=== PATIENT | male | born 1940 | race Caucasian/White ===

== ENCOUNTER 2017-03-19 06:20 | Outpatient (CLI) | payer MEDICARE, OTHER ==
[~2017-03-19] VITALS: Ht 175.3 cm; Wt 99.8 kg
[~2017-03-19 06:20] MED LIST: AMOX1TAB61 PO; ASCO10002 PO; ASPI-630 PO; CARV6.252 PO; FINA5TAB4 PO; FURO20TA3 PO; LISI10TA2 PO; OMEG1CAP6 PO; PHEN100C PO; TAMS0.4C97 PO
[2017-03-19] MEDS ORDERED: EZET10TA18 PO (06:57)
[2017-03-19] MEDS ORDERED: CHOL100013 PO (06:57)
[2017-03-19] MEDS ORDERED: BACITRACIN 50,000 UNIT in IV NORMAL SALINE 250ML 250 ML IRR ONE (07:00)
[2017-03-19 07:10] LABS: HEMATOCRIT 43.2 % (39.0-53.0); HEMOGLOBIN 14.3 g/dL (13.0-17.5); RED BLOOD COUNT 4.67 x10^6/uL (4.30-5.70); RED CELL DISTRIBUTION WIDTH 15.4 % (11.5-14.5); WHITE BLOOD COUNT 16.8 x10^3/uL (4.0-11.0)
[2017-03-19 07:12] LABS: CREATININE 1.1 mg/dL (0.7-1.3); GFR 64.9; POTASSIUM 4.1 mmol/L (3.5-5.1)
[2017-03-19 07:13] VITALS: BP 126/72
[2017-03-19] MEDS ORDERED: LIDOCAINE 2%/EPI 1:100,000 20 ML VIAL. ONE (07:21)
[2017-03-19 07:23] LABS: INR 1.1 (0.8-1.1); PROTHROMBIN TIME PATIENT 13.9 SEC (11.7-14.0)
[2017-03-19] MEDS ORDERED: fentaNYL PF VIAL 250 MCG/5 ML VIAL ONE (07:57)
[2017-03-19] MEDS ORDERED: MIDAZOLAM HCL/PF 5 MG/5 ML VIAL. ONE (07:57)
--- NOTE | 2017-03-19 08:32 | PDOC ---
MODERATE SEDATION ASSESSMENT RISKS/ALTERNATIVES Risks/Alternatives Risks and alternatives of this type of sedation and procedure discussed with: RISK/ALTERNATIVES: Patient H & P ON CHART H & P H & P on chart and reviewed for co-morbid conditions and appropriate labs. H&P ON CHART: Yes STATUS PREG STATUS ASSESSED: N/A MEDS/ALLERGIES REVIEWED Meds/Allergies Reviewed Medications and Allergies including time and route of recently administered narcotics and sedatives. MEDS/ALLERGIES REVIEWED: Yes ASA RATING ASA RATING: II AIRWAY ASSESSMENT Airway Assessment Airway patency, oral function limitations, presence of caps, crowns, dentures, partials, and ability to extend neck assessed. AIRWAY ASSESSMENT: Yes MALLAMPATI SCORE MALLAMPATI SCORE: II PRE-SEDATION ASSESSMENT PRE-SEDATION ASSESSMENT: Yes MICHAEL PENA MD Mar 19, 2017 08:32
[2017-03-19] MEDS ORDERED: fentaNYL PF VIAL 250 MCG/5 ML VIAL IV ONE (09:30)
[2017-03-19] MEDS ORDERED: MIDAZOLAM HCL/PF 5 MG/5 ML VIAL. IV ONE (09:30)
[2017-03-19] MEDS ORDERED: LIDOCAINE 2%/EPI 1:100,000 20 ML VIAL. IJ ONE (09:30)
[2017-03-19 09:33] VITALS: BP 125/68
[2017-03-19 09:50] VITALS: BP 115/67
[2017-03-19 10:05] VITALS: BP 102/60
[2017-03-19 10:15] VITALS: BP 101/60
--- NOTE | 2017-03-19 10:26 | CARD ---
APPROVED REPORT PROCEDURES Successful Biotronik biventricular ICD/TARGETEER-D generator change 92 minutes of moderate sedation INDICATIONS Non-ischemic cardiomyopathy s/p biventricular ICD/TARGETEER-D implantation presenting with battery depletio n PROCEDURE After explaining the risks, benefits, and alternative options, informed consent was obtained from the patient. The patient was brought to the cardiac catheterization lab and the left chest and shoulder were prepp ed and draped in a sterile manner. 30 mL of 2% lidocaine was infiltrated into the skin and subcutaneous tissues for local anesthesia. An incision was made over the previous scar and using blunt dissection and cautery, the pocket was open ed, the capsule exposed and opened and the previously placed generator removed from the pocket. The l doug were detached and reattached to a Biotronik biventricular ICD/TARGETEER-D generator model Iperia 7 HF- T, serial #[id number]. This was placed in the pocket that was subsequently closed in 3 layers. Hemostas is was secured. There were no immediate complications. CONCLUSION Successful Biotronik biventricular ICD/TARGETEER-D generator change for battery depletion.
[2017-03-19 10:30] VITALS: BP 107/65
== END 2017-03-19 11:14 | disposition home or self-care (01) ==
LOC: CCL 06:20
PROVIDERS: ATTEND Internal Medicine Cardiovascular Disease
DX: I42.8 Other cardiomyopathies (principal); T82.191A Other mechanical complication of cardiac pulse generator (battery), initial encounter; Y84.8 Other medical procedures as the cause of abnormal reaction of the patient, or of later complication, without mention of misadventure at the time of the procedure; E78.00 Pure hypercholesterolemia, unspecified; I10 Essential (primary) hypertension; Z86.69 Personal history of other diseases of the nervous system and sense organs; Z86.39 Personal history of other endocrine, nutritional and metabolic disease
CPT/HCPCS: 33264; 36415; 80048; 85027; 85610; 99152; 99153; C1882; J0690; J2250; J3010; J3490; J7050; C1785; J7030

== ENCOUNTER → 2017-05-09 | Outpatient (CLI) | payer MEDICARE, OTHER ==
[~2017-05-09] MED LIST changes: +CHOL100013 PO; +EZET10TA18 PO
--- NOTE | 2017-05-09 14:54 | CARD ---
APPROVED REPORT EXAM: Two-dimensional and M-mode echocardiogram with Doppler and color Doppler. Other Information Quality : Average Rhythm : Pacemaker INDICATION Cardiomyopathy NICM 2D DIMENSIONS RVDd4.0 (2.9-3.5cm)Left Atrium(2D)3.7 (1.6-4.0cm) IVSd0.9 (0.7-1.1cm)Aortic Root(2D)3.2 (2.0-3.7cm) LVDd5.2 (3.9-5.9cm)LVOT Diameter2.2 (1.8-2.4cm) PWd0.9 (0.7-1.1cm)LVDs2.9 (2.5-4.0cm) FS (%) 33.7 %SV96.7 ml LVEF(%)64.5 (>50%) Aortic Valve AoV Peak Prem.147.6cm/sAoV VTI26.2cm AO Peak GR.8.7mmHgLVOT Peak Prem.87.6cm/s LVOT VTI 18.38cmAO Mean GR.5mmHg KINJAL (VMAX)2.14ht7YIL (VTI)2.78cm2 Mitral Valve MV E Jnjtkpyk97.4cm/sMV DECEL ZQFY615nn MV A Ilwcakfh38.2cm/sMV RFO54wm E/A Ratio1.3MV A Feccteqc17er MVA (PHT)2.51cm2 TDI E/Lateral E'9.2E/Medial E'8.3 Tricuspid Valve TR P. Vsjvhsdp452sz/sRAP ZLSUIZXD7zpCr TR Peak Gr.19vvDbJYUX87qcLt LEFT VENTRICLE The left ventricle is normal size. There is normal left ventricular wall thickness. Left ventricle sy stolic function is normal. The Ejection Fraction is 55-60%. The left ventricular diastolic function a nd filling is normal for age. There is no ventricular septal defect visualized. RIGHT VENTRICLE The right ventricle is mildly dilated. The right ventricular systolic function is normal. There is a pacemaker lead seen in the right ventricle and atrium. ATRIA The left atrium size is normal. The right atrium size is normal. The interatrial septum is intact wit h no evidence for an atrial septal defect or patent foramen ovale as noted on 2-D or Doppler imaging. AORTIC VALVE The aortic valve is normal in structure and function. The aortic valve is trileaflet. Doppler and Col or Flow revealed trace aortic regurgitation. There is no significant aortic valvular stenosis. MITRAL VALVE The mitral valve is normal in structure and function. There is no mitral valve stenosis. Doppler and Color Flow revealed no mitral valve regurgitation noted. TRICUSPID VALVE The tricuspid valve is not well visualized. Doppler and Color Flow revealed mild tricuspid regurgitat ion. The PA pressure was estimated at 35 mmHg. There is no tricuspid valve stenosis. PULMONIC VALVE The pulmonic valve is not well visualized. Doppler and Color Flow revealed no pulmonic valvular regur gitation. There is no pulmonic valvular stenosis. GREAT VESSELS The aortic root is normal in size. The ascending aorta is normal in size. Normal pulmonary venous shahriar w (Doppler). The IVC is normal in size and collapses >50% with inspiration. PERICARDIAL EFFUSION There is no evidence of significant pericardial effusion. Critical Notification Critical Value: No <Conclusion> The left ventricle is normal size. Left ventricle systolic function is normal. The Ejection Fraction is 55-60%. There is a pacemaker lead seen in the right ventricle and atrium. There is no significant aortic valvular stenosis. Doppler and Color Flow revealed trace aortic regurgitation. Doppler and Color Flow revealed no mitral valve regurgitation noted. Doppler and Color Flow revealed mild tricuspid regurgitation. The PA pressure was estimated at 35 mmHg.
== END | disposition home or self-care (01) ==
LOC: ECHO 12:56
PROVIDERS: ATTEND Internal Medicine Cardiovascular Disease
DX: I31.3 Pericardial effusion (noninflammatory) (principal); I42.9 Cardiomyopathy, unspecified
CPT/HCPCS: 93306

== ENCOUNTER → 2018-05-12 | Outpatient (CLI) | payer MEDICARE, OTHER ==
--- NOTE | 2018-05-12 11:02 | CARD ---
MR#: [id number] Date of Study: 05/12/2018 Ordering Physician: MICHAEL PENA, Referring Physician: MICHAEL PENA Tech: Salma Sherman RDCS APPROVED REPORT EXAM: Two-dimensional and M-mode echocardiogram with Doppler and color Doppler. Other Information Quality : Good INDICATION Congestive Heart Failure Surgery/Intervention ICD/Pacemaker: 2D DIMENSIONS RVDd3.6 (2.9-3.5cm)Left Atrium(2D)3.7 (1.6-4.0cm) IVSd1.1 (0.7-1.1cm)Aortic Root(2D)3.3 (2.0-3.7cm) LVDd4.7 (3.9-5.9cm)LVOT Diameter2.2 (1.8-2.4cm) PWd1.1 (0.7-1.1cm)LVDs3.0 (2.5-4.0cm) FS (%) 30.0 %SV70.3 ml LVEF(%)60.0 (>50%) Aortic Valve AoV Peak Prem.129.1cm/sAoV VTI25.6cm AO Peak GR.6.7mmHgLVOT Peak Prem.68.7cm/s AO Mean GR.4mmHgAVA (VMAX)2.03cm2 KINJAL (VTI)2.67zn2RI P 1/2 Dttv746pj Mitral Valve MV E Rymtvmms59.4cm/sMV DECEL XVHH736fu MV A Pjlbqvoz08.0cm/sE/A Ratio0.9 Tricuspid Valve TR P. Zupcqcdt529iv/sRAP DVCOFKFU8emZk TR Peak Gr.89pjVgTAVP92nqSl Pulmonary Vein S1 Tqwhgosp97.8cm/sD2 Uoslespd74.1cm/s LEFT VENTRICLE The left ventricle is normal size. There is normal left ventricular wall thickness. The left ventricu lar systolic function is normal and the ejection fraction is within normal range. The Ejection Fracti on is 50-55%. There is normal LV segmental wall motion. Transmitral Doppler flow pattern is Grade I-a bnormal relaxation pattern. RIGHT VENTRICLE The right ventricle is normal size. The right ventricular systolic function is normal. There is a dev ice lead in the right heart. ATRIA The left atrium size is normal. The right atrium size is normal. The interatrial septum is intact wit h no evidence for an atrial septal defect or patent foramen ovale as noted on 2-D or Doppler imaging. AORTIC VALVE The aortic valve is calcified but opens well. Doppler and Color Flow revealed trace to mild aortic re gurgitation. There is no significant aortic valvular stenosis. MITRAL VALVE The mitral valve is calcified but opens well. There is no evidence of mitral valve prolapse. There is no mitral valve stenosis. Doppler and Color-flow revealed trace mitral regurgitation. TRICUSPID VALVE The tricuspid valve is normal in structure and function. Doppler and Color Flow revealed mild tricusp id regurgitation. The PA pressure was estimated at 28 mmHg. There is no tricuspid valve stenosis. PULMONIC VALVE The pulmonary valve is normal in structure and function. Doppler and Color Flow revealed mild pulmoni c valvular regurgitation. There is no pulmonic valvular stenosis. GREAT VESSELS The aortic root is normal in size. The ascending aorta is normal in size. The IVC is normal in size a nd collapses >50% with inspiration. PERICARDIAL EFFUSION There is no evidence of significant pericardial effusion. Critical Notification Critical Value: No <Conclusion> The left ventricle is normal size. The left ventricular systolic function is normal and the ejection fraction is within normal range. The Ejection Fraction is 50-55%. There is a device lead in the right heart. There is no significant aortic valvular stenosis. Doppler and Color Flow revealed trace to mild aortic regurgitation. Doppler and Color-flow revealed trace mitral regurgitation. Doppler and Color Flow revealed mild tricuspid regurgitation. The PA pressure was estimated at 28 mmHg. Signed by : Zhen Salamanca MD Electronically Approved : 05/12/2018 11:00:43
== END | disposition home or self-care (01) ==
LOC: ECHO 09:31
PROVIDERS: ATTEND Internal Medicine Cardiovascular Disease
DX: I11.0 Hypertensive heart disease with heart failure (principal); I50.22 Chronic systolic (congestive) heart failure; I36.1 Nonrheumatic tricuspid (valve) insufficiency; I37.1 Nonrheumatic pulmonary valve insufficiency; M19.90 Unspecified osteoarthritis, unspecified site; Z86.73 Personal history of transient ischemic attack (TIA), and cerebral infarction without residual deficits; Z86.69 Personal history of other diseases of the nervous system and sense organs; Z86.39 Personal history of other endocrine, nutritional and metabolic disease
CPT/HCPCS: 93306

== ENCOUNTER → 2019-05-04 | Outpatient (CLI) | payer MEDICARE, OTHER ==
[~2019-05-04] MED LIST changes: +CARV6.2511 PO; -CARV6.252 PO; -EZET10TA18 PO; +EZET10TA20 PO
--- NOTE | 2019-05-04 17:56 | CARD ---
MR#: [id number] Date of Study: 05/04/2019 Ordering Physician: MICHAEL PENA, Referring Physician: MICHAEL PENA, Tech: APPROVED REPORT EXAM: Two-dimensional and M-mode echocardiogram with Doppler and color Doppler. INDICATION Congestive Heart Failure 2D DIMENSIONS RVDd4.1 (2.9-3.5cm)Left Atrium(2D)3.5 (1.6-4.0cm) IVSd1.0 (0.7-1.1cm)Aortic Root(2D)2.8 (2.0-3.7cm) LVDd4.7 (3.9-5.9cm)LVOT Diameter2.2 (1.8-2.4cm) PWd1.0 (0.7-1.1cm)LVDs3.4 (2.5-4.0cm) FS (%) 26.3 %SV51.7 ml LVEF(%)51.6 (>50%) Aortic Valve AoV Peak Prem.126.1cm/sAoV VTI20.0cm AO Peak GR.6.4mmHgLVOT Peak Prem.72.4cm/s LVOT VTI 15.30cmAO Mean GR.3mmHg KINJAL (VMAX)1.91ds9TMW (VTI)2.89cm2 AI P 1/2 Qtdz727qw Mitral Valve MV E Bllmkqtt00.6cm/sMV DECEL REYV797au MV A Ovmlcwbl60.3cm/sMV DBP76mh E/A Ratio1.0MVA (PHT)2.31cm2 TDI E/Lateral E'7.8E/Medial E'6.5 Pulmonary Valve PV Peak Okubunnt38.0cm/sPV Peak Grad.3mmHg Tricuspid Valve TR P. Oqvtjbbc477ci/sRAP WKQCRGJH7qtIf TR Peak Gr.98qhEhENER87ifBu Pulmonary Vein S1 Cuakswbt25.3cm/sD2 Vjyuwskl39.7cm/s PVa vivwbspu221uinz LEFT VENTRICLE The left ventricle is normal size. There is normal left ventricular wall thickness. The left ventricu lar systolic function is normal and the ejection fraction is within normal range. The Ejection Fracti on is 50-55%. There is normal LV segmental wall motion. Transmitral Doppler flow pattern is Grade I-a bnormal relaxation pattern. RIGHT VENTRICLE The right ventricle is normal size. There is normal right ventricular wall thickness. The right ventr icular systolic function is normal. There is a pacemaker lead in the right ventricle. ATRIA The left atrium size is normal. The right atrium size is normal. The interatrial septum is intact wit h no evidence for an atrial septal defect or patent foramen ovale as noted on 2-D or Doppler imaging. AORTIC VALVE The aortic valve is thickened but opens well. Doppler and Color Flow revealed trace aortic regurgitat ion. There is no significant aortic valvular stenosis. MITRAL VALVE The mitral valve is normal in structure and function. There is no evidence of mitral valve prolapse. There is no mitral valve stenosis. Doppler and Color-flow revealed trace mitral regurgitation. TRICUSPID VALVE The tricuspid valve is normal in structure and function. Doppler and Color Flow revealed trace tricus pid regurgitation with an estimated PAP of 25 mmHg. There is no tricuspid valve stenosis. PULMONIC VALVE The pulmonic valve is not well visualized. Doppler and Color Flow revealed trace pulmonic valvular re gurgitation. There is no pulmonic valvular stenosis. GREAT VESSELS The aortic root is normal in size. The IVC was not visualized. PERICARDIAL EFFUSION There is small left pleural effusion. There is no evidence of significant pericardial effusion. Critical Notification Critical Value: No <Conclusion> The left ventricular systolic function is normal and the ejection fraction is within normal range. Th e Ejection Fraction is 50-55%. There is normal LV segmental wall motion. There is a pacemaker lead in the right ventricle. There is small left pleural effusion. Signed by : Rhett Mcgee, Electronically Approved : 05/04/2019 17:55:32
== END | disposition home or self-care (01) ==
LOC: ECHO 14:49
PROVIDERS: ATTEND Internal Medicine Cardiovascular Disease
DX: I31.3 Pericardial effusion (noninflammatory) (principal); I50.22 Chronic systolic (congestive) heart failure; Z95.0 Presence of cardiac pacemaker
CPT/HCPCS: 93306